=== PATIENT | female | born 2000 | race Caucasian/White ===

== ENCOUNTER → 2021-08-14 11:38 | Outpatient (CLI) | payer BC, SELFPAY ==
--- NOTE | 2021-08-14 12:07 | RAD_ITS ---
STUDY: X-RAY - ABDOMEN/PELVIS REASON FOR EXAM: Female, 21 years old. BLADDER PAIN . History of kidney stones. TECHNIQUE: Single AP view of the abdomen / pelvis. COMPARISON: None. FINDINGS: Normal visualized lung bases. There is a moderate amount of colonic fecal material. The visualized liver, spleen and kidneys are grossly normal in size and morphology. Normal soft tissue structures. Normal visualized osseous structures. RAD/Abdomen Single View IMPRESSION: Moderate amount of fecal material is seen in the colon. Electronically Signed: Ti Montanez MD at 13:09 EST , Service support ,
[2021-08-14 12:20] LABS: Absolute Neutrophil Count 5.8 X10^3/uL (2.0-7.7); Basophil# 0.05 X10^3/uL; Basophil% 0.6 % (0-1); Eosinophil# 0.12 X10^3/uL; Eosinophils% 1.3 % (0-5); Hematocrit 38.8 % (37-47); Hemoglobin 12.5 g/dL (12.0-15.0); Lymphocyte % 27.8 % (19-41); Mean Corp Hgb Conc 32.2 g/dL (32-36); Mean Corpuscular Hgb 27.2 pg (27.0-32.0); Mean Corpuscular Volume 84.5 fL (81-99); Mean Platelet Vol. 8.3 fl (6.2-12.0); Monocyte# 0.46 X10^3/uL; Monocyte% 5.1 % (0-10); NRBC Flagged by Analyzer 0 % (0-5); Neutrophil # 5.83 X10^3/uL (2.7-7.7); Neutrophil % 64.8 % (47-70); Platelet Count 431 K/mm3 (150-450); RBC Distribution Width CV 14.3 % (11.6-14.6); RBC Distribution Width SD 43.8 fl (35.1-43.9); Red Blood Count 4.59 M/mm3 (4.2-5.4)
== END ==
DX: R31.29 Other microscopic hematuria (principal); N20.0 Calculus of kidney; R39.89 Other symptoms and signs involving the genitourinary system
CPT/HCPCS: 36415; 74018; 85025

== ENCOUNTER 2021-10-06 08:07 | Outpatient (CLI) | payer BC, SELFPAY ==
[2021-10-06 09:42] LABS: Hematocrit 38.2 % (37-47); Hemoglobin 12.6 g/dL (12.0-15.0); Mean Corpuscular Hgb 27.9 pg (27.0-32.0); Mean Corpuscular Volume 84.7 fL (81-99); Platelet Count 436 K/mm3 (150-450); RBC Distribution Width CV 14.4 % (11.6-14.6); RBC Distribution Width SD 44.4 fl (35.1-43.9); Red Blood Count 4.51 M/mm3 (4.2-5.4); White Blood Count 7.4 K/mm3 (4.4-11.0)
[2021-10-06 09:48] LABS: Color, Urine Yellow (Yellow); Glucose, Dipstick Normal (Normal); Ketone-Dipstick Negative (Negative); Leukocyte Esterase-Dipstick 25 /ul (Negative); Nitrite-Dipstick Negative (Negative); Occult Blood-Urine 150 /ul (Negative); Protein-Dipstick 30 mg/dl (Negative); Urine Bilirubin Dipstick Negative (Negative); Urine Clarity Sl. Cloudy (Clear); Urine Urobilinogen Normal (Normal)
[2021-10-06 09:49] LABS: Protein:Creat Ratio 223 mg/g CRE (0-200)
[2021-10-06 10:02] LABS: PTHIN 51.2 pg/mL (18.4-80.1)
[2021-10-06 10:07] LABS: Vitamin B12 348 pg/mL (211-911)
[2021-10-06 10:22] LABS: Albumin, Serum 3.6 g/dL (3.2-5.0); BUN 15 mg/dL (7-18); BUN/Creat Ratio 21.6 RATIO (10-20); Calcium,Total 8.9 mg/dL (8.5-10.1); Chloride 109 mmol/L (98-107); EST Glomerular Filtration Rate 111 mL/min (>60); Est Glom Filt Rate - Afr Amer 134 mL/min (>60); Glucose 99 mg/dL (74-106); Iron Binding Capacity,Total 438 ug/dL (250-450); Phosphorus 3.1 mg/dL (2.5-4.9); Potassium 3.8 mmol/L (3.5-5.1); Sodium Level 139 mmol/L (136-145); Thyroid Stim Hormone (TSH) 1.82 uIU/mL (0.358-3.74); Uric Acid 4.3 mg/dL (2.6-6.0)
[2021-10-07 09:49] LABS: MG Sendout 1.9 mg/dL (1.6-2.3)
== END 2021-10-06 23:59 | disposition home or self-care (01) ==
PROVIDERS: Visit Provider Nurse Practitioner
DX: N20.0 Calculus of kidney (principal)
CPT/HCPCS: 36415; 80069; 81002; 82306; 82570; 82607; 82746; 83550; 83735; 83970; 84156; 84443; 84550; 85027